=== PATIENT | male | born 1970 | race Caucasian/White ===

== ENCOUNTER 2017-08-15 11:34 | Day surgery (SDC) | payer OTHER ==
[~2017-08-15] VITALS: Ht 188 cm; Wt 110.5 kg
[2017-08-15] VITALS (9 sets, daily range): BP systolic 107–131; BP diastolic 68–82; PULSE 43–68; TEMP 97.7
[2017-08-15] MEDS ORDERED: PRILOSEC 20MG20 MG PO (12:09)
[2017-08-15] MEDS ORDERED: ZYRTEC 10MG10 MG PO (12:09)
[2017-08-15] MEDS ORDERED: PRINIVIL10 MG PO (12:10)
[2017-08-15] MEDS ORDERED: HCTZ12.5TAB PO (12:11)
[2017-08-15 12:19] LABS: HEMATOCRIT 39.6 % (42.0-52.0); HEMOGLOBIN 13.3 g/dl (13.5-18.0); MEAN CELL VOLUME 89 fl (80.0-100.0); MEAN CORPUSCULAR HEMOGLOBIN 30 pg (27.0-31.0); MEAN CORPUSCULAR HGB CONC 34 g/dl (33.0-37.0); MEAN PLATELET VOLUME 10.4 fl (7.4-10.4); PLATELET COUNT 205 K/mm3 (130-400); RED BLOOD COUNT 4.44 M/mm3 (4.20-5.60); REDCELL DISTRIBUTION WIDTH-CV 13.2 % (11.5-14.5)
[2017-08-15] MEDS ORDERED: PLAVIX 75MG TAB75 MG PO (12:22)
[2017-08-15 12:23] LABS: CALCIUM 9.1 mg/dL (8.4-10.2); CREATININE, serum 0.84 mg/dL (0.66-1.25)
== END 2017-08-15 17:37 | disposition home or self-care (01) ==
LOC: COL.CAR 11:34
PROVIDERS: Internal Medicine Interventional Cardiology
DX: R07.89 Other chest pain (principal); R06.02 Shortness of breath; I10 Essential (primary) hypertension; I83.813 Varicose veins of bilateral lower extremities with pain; Z83.3 Family history of diabetes mellitus; Z82.49 Family history of ischemic heart disease and other diseases of the circulatory system; Z82.3 Family history of stroke; Z88.5 Allergy status to narcotic agent
CPT/HCPCS: J2250; J3010; Q9967